=== PATIENT | female | born 1985 | race Caucasian/White ===

== ENCOUNTER 2018-02-13 13:08 | Outpatient (CLI) | payer BC ==
--- NOTE | 2018-02-13 14:40 | RAD ---
THREE VIEWS OF THE LUMBAR SPINE: DATE: 02/13/2018. COMPARISON: None. HISTORY: Low back pain following slipping in the shower tweaked back. FINDINGS: Five lumbar-type vertebral bodies are present with intact pedicles on frontal imaging. The lateral e xam demonstrates normal vertebral body height and alignment. At the T11-12 level, there is disk space narrowing and anterior osteophyte formation/right lateral os teophyte formation. No acute fracture is seen. IMPRESSION: No acute osseous abnormality. POS: [facility]
== END 2018-02-13 13:09 | disposition home or self-care (01) ==
LOC: SCSRAD 13:08
PROVIDERS: ATTEND Chiropractor
DX: M54.5 Low back pain (principal)
CPT/HCPCS: 72100